=== PATIENT | male | born 1950 | race Caucasian/White ===

== ENCOUNTER 2017-09-19 06:10 | Observation (INO) | payer BC ==
[2017-09-19] VITALS (9 sets, daily range): BP systolic 121–168; BP diastolic 63–93
[~2017-09-19] VITALS: Ht 172.7 cm; Wt 81.6 kg
[~2017-09-19 06:10] MED LIST: ASPIRIN EC81 MG PO; BL ASPIRIN325 MG PO; CIPROFLOXACN500 MG PO; DILAUDID 2MG2 MG/TA1 PO; METAMUCIL28 % PO; NADOLOL20 MG PO; NEXIUM40 MG PO; ULTRAM50 M1 PO; VICODIN1 TAB PO
[2017-09-20 06:23] LABS: HEMATOCRIT 44.4 % (39.0-50.0); HEMOGLOBIN 14.8 g/dl (14.0-18.0); IMMATURE GRANULOCYTES 0.3 % (0.0-1.0); MEAN CELL VOLUME 89.5 fL CALC (80.0-100.0); MEAN CORPUSCULAR HGB 29.8 pG CALC (26.0-32.0); MEAN CORPUSCULAR HGB CONC 33.3 g/L CALC (32.0-36.0); NEUT# 8.17 thou/uL (1.82-7.42); RED BLOOD COUNT 4.96 mill/uL (4.70-6.10); RED CELL DISTRI WIDTH 14.2 % (11.5-15.5)
[2017-09-20 07:35] VITALS: BP 158/80
== END 2017-09-20 11:17 | disposition home or self-care (01) | DRG 418 ==
LOC: ORM 06:10 → MS2 11:55
PROVIDERS: ADMIT Surgery; ATTEND Surgery
PROC: 0FT44ZZ Resection of Gallbladder, Percutaneous Endoscopic Approach (ICD-10-PCS; principal; 2017-09-19)
PROC: 0BQT4ZZ Repair Diaphragm, Percutaneous Endoscopic Approach (ICD-10-PCS; 2017-09-19)
DX: K80.00 Calculus of gallbladder with acute cholecystitis without obstruction (principal); M96.821 Accidental puncture and laceration of a musculoskeletal structure during other procedure; K82.8 Other specified diseases of gallbladder; Y83.6 Removal of other organ (partial) (total) as the cause of abnormal reaction of the patient, or of later complication, without mention of misadventure at the time of the procedure; Y92.234 Operating room of hospital as the place of occurrence of the external cause
CPT/HCPCS: J1650; J2710; Q9967

== ENCOUNTER → 2018-07-10 | Outpatient (REF) | payer MEDICARE ==
[2018-07-10 09:38] LABS: MEAN CELL VOLUME 91.2 fL CALC (80.0-100.0); MEAN CORPUSCULAR HGB 29.9 pG CALC (26.0-32.0); MEAN CORPUSCULAR HGB CONC 32.8 g/L CALC (32.0-36.0); RED BLOOD COUNT 5.68 mill/uL (4.70-6.10)
[2018-07-10 09:50] LABS: HEMATOCRIT 51.8 % (39.0-50.0)
[2018-07-10 11:55] LABS: ALBUMIN 3.6 g/dL (3.2-5.0); ALKALINE PHOSPHATASE 52 u/l (38-126); ANION GAP 13 (6-22 (CALC)); BILIRUBIN, TOTAL 0.6 mg/dL (0.0-1.4); BUN 13 mg/dL (8-23); BUN/CREATININE RATIO 15 (12-20 (CALC)); CARBON DIOXIDE 25 mmol/l (22-30); CHLORIDE 107 mmol/l (95-108); CREATININE 0.9 mg/dL (0.7-1.3); GFR > 60 ML/MIN (>=60 (CALC)); GFR FOR AFR.AMER. > 60 ML/MIN (>=60 (CALC)); POTASSIUM 4.4 mmol/l (3.5-5.1); SGOT/AST 27 u/l (19-48); SODIUM 140 mmol/l (137-146); TOTAL PROTEIN 6.2 g/dL (6.3-8.2)
== END | disposition home or self-care (01) ==
LOC: LAB 08:48
PROVIDERS: ATTEND Internal Medicine
DX: R53.83 Other fatigue (principal)

== ENCOUNTER 2023-06-20 08:05 | Day surgery (SDC) | payer MEDICARE ==
[~2023-06-20] VITALS: Ht 172.7 cm; Wt 86.2 kg
[~2023-06-20 08:05] MED LIST changes: +CARAFATE1 GM PO; +COLESTID1 GM PO; +MAGNESIUM250 M1 PO; +MEDDOSEPAK PO; +NEXIUM 24HR20 MG PO; +OCUVITE ADULT FORMUL PO; +PRESERVISION AREDS 2; +PROSTATE SR PO; +PROTONIX20 MG PO; +RED YEAST RICE300 MG PO; +SAW PALMETTO1 CAP PO; +TAMSULOSIN0.4 MG PO; +TURMERIC CURCUM1 CA1 PO; +XYZAL ALLERGY 245 MG PO
[2023-06-20 10:10] VITALS: BP 157/81
== END 2023-06-20 10:25 | disposition home or self-care (01) ==
LOC: ENDO 08:05 → ORM 09:00 → ENDO 10:25
PROVIDERS: ATTEND Surgery
PROC: 0DJ08ZZ Inspection of Upper Intestinal Tract, Via Natural or Artificial Opening Endoscopic (ICD-10-PCS; principal; 2023-06-20)
DX: K44.9 Diaphragmatic hernia without obstruction or gangrene (principal)